=== PATIENT | male | born 2000 | race African-American/Black ===

== ENCOUNTER → 2019-07-02 | Outpatient (CLI) | payer OTHER ==
--- NOTE | 2019-07-03 08:15 | ECHO ---
DATE OF PROCEDURE: 07/02/2019 DATE OF : 2000 AGE: 19 REFERRING PROVIDER: JANELL Tellez REASON FOR THE STUDY: Abnormal EKG. 2-D MEASUREMENTS: IVS: 1.0 cm LV: 5.3 cm LVPW: 1.0 cm LA: 3.3 cm IVC: 1.4 cm DOPPLER MEASUREMENTS: Peak velocity across the aortic valve: 1.3 m/sec Peak velocity across the LVOT: 1.1 m/sec Mitral E: 0.86, Mitral A: 0.36 with a ratio of 2.4 Maximum tricuspid valve velocity: 2.0 m/sec 2-D COMMENTS: 1. Normal left ventricular size, wall thickness, and normal global left ventricular systolic function. The estimated ventricular systolic ejection fraction is 60-65%. 2. Normal left atrium. Normal right atrium and right ventricle. 3. The atrial septum appeared to be normal without evidence of defect or shunt. 4. Normal aortic root. 5. No pericardial effusion seen. 6. The aortic valve, mitral valve, tricuspid valve, and pulmonic valve appeared to be normal. The proximal pulmonary artery branches also appeared to be normal. 7. The inferior vena cava was normal in size, central venous pressure was most likely normal. DOPPLER: It detects trace mitral regurgitation, trace tricuspid regurgitation, and trace pulmonic regurgitation. The calculated pulmonary artery systolic pressure was normal. Assessment of the left ventricular diastolic function appeared to be normal. IMPRESSION: 1. Normal global left ventricular systolic and diastolic function. 2. Trace mitral regurgitation. 3. Trace tricuspid regurgitation with a normal calculated pulmonary artery systolic pressure. 4. Trace pulmonic regurgitation. 5. The patient was noted during the test to be bradycardic with a heart rate as low as between 45- 50 beats per minute at times. 6. Global longitudinal strain was reported to be 16.5%.
== END ==
LOC: M CARPUL 08:43
PROVIDERS: ATTEND Physician Assistant
DX: R00.1 Bradycardia, unspecified (principal); I34.0 Nonrheumatic mitral (valve) insufficiency; I37.1 Nonrheumatic pulmonary valve insufficiency